=== PATIENT | male | born 2000 | race Caucasian/White ===

== ENCOUNTER 2024-06-16 22:30 | Emergency (ER) | payer OTHER, SELFPAY ==
[2024-06-16 22:47] VITALS: BP 138/73; PULSE 82; RESP 18; TEMP 36.9; O2SAT 98; BMI 26.6
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
[2024-06-16] MEDS: ACETAMINOPHEN 325 MG TABLET 975 MG PO (23:14)
[2024-06-16 23:21] VITALS: BP 117/56; PULSE 68; RESP 14; TEMP 36.9; O2SAT 99
== END 2024-06-16 23:22 | disposition home or self-care (01) ==
PROVIDERS: Emergency Provider Emergency Medicine
DX: S06.0X0A Concussion without loss of consciousness, initial encounter (principal); S00.83XA Contusion of other part of head, initial encounter; V89.2XXA Person injured in unspecified motor-vehicle accident, traffic, initial encounter
CPT/HCPCS: 99282; 99283

== ENCOUNTER 2024-11-07 19:41 | Emergency (ER) | payer OTHER, SELFPAY ==
[2024-11-07 19:51] VITALS: BP 138/83; PULSE 81; RESP 16; TEMP 37.2; O2SAT 98; BMI 25.8
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
== END 2024-11-07 20:24 | disposition home or self-care (01) ==
PROVIDERS: Emergency Provider Emergency Medicine
DX: S00.12XA Contusion of left eyelid and periocular area, initial encounter (principal); H11.32 Conjunctival hemorrhage, left eye; W50.0XXA Accidental hit or strike by another person, initial encounter
CPT/HCPCS: 99281

== ENCOUNTER 2025-07-13 18:41 | Emergency (ER) | payer OTHER, SELFPAY ==
[2025-07-13 19:03] VITALS: BP 136/87; PULSE 88; RESP 16; TEMP 36.9; O2SAT 98; BMI 25.0
[2025-07-13] MEDS: ACETAMINOPHEN 325 MG TABLET 975 MG PO (19:13)
[2025-07-13] MEDS: TET,DIPH,PERTUSS(ACELL),VAC/PF 0.5 ML SYRINGE IM (19:56)
== END 2025-07-13 20:42 | disposition left against medical advice (07) ==
PROVIDERS: Emergency Provider Emergency Medicine
DX: S01.25XA Open bite of nose, initial encounter (principal); Z23 Encounter for immunization
CPT/HCPCS: 90471; 99283; 90715